=== PATIENT | female | born 2005 | race Caucasian/White ===

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

== ENCOUNTER → 2023-01-08 | Outpatient (CLI) | payer BC, SELFPAY ==
--- NOTE | 2023-01-08 | TONS_PTH ---
PATIENT: GANGA MANDEL [facility] U#:[id number] AGE/SX: ROOM: RE01/08/[address]: Dr. Joaquin Vick MD : 2005 BED: DIS: 01/08/2023 SPEC #: [id number] RECD: 01/09/23 10:10 STATUS: FRANKO REDemetra #: [id number] JANE: 01/08/23 00:[address]: Joaquin Vick DEPT: SURGICAL PATHOLOGY RECD BY: Julio Elliott ENTERED: 01/09/23 10:10 SP TYPE: TONSILS OTHR DR: Dr. Crissy Hopper MD [facility] Tissues: Tonsil, NOS Procedures: Surgery Specimen Level III HEADER OPERATION: Bilateral tonsillectomy PRE-OP DIAGNOSIS: Chronic tonsillitis, hypertrophy of tonsils TISSUE SUBMITTED: Bilateral tonsils, right tonsil pinned MICROSCOPIC DIAGNOSIS Bilateral tonsils, tonsillectomy: Reactive lymphoid hyperplasia, consistent with chronic tonsillitis. Focal actinomyces colonization. SJ:tasia 01/12/2023 MICROSCOPIC DESCRIPTION Slides are reviewed. GROSS DESCRIPTION Received is one container labeled with the patient's name and designated tonsils - pin/tie on right are two tonsils that in aggregate weigh 4.9 gm. The right tonsil has a pin-tie on it and measures 2.5 x 1.5 x 1.0 cm. The left tonsil measures 2.6 x 1.5 x 1.0 cm. Both tonsils are similar in appearance. The external surfaces are pink-duarte, smooth, glistening and somewhat lobulated. Focally they are hemorrhagic, granular and bear cautery artifact. Serial cross sections through the tonsils reveal normal tonsillar architecture. Sections are submitted in two cassettes as follows: 1 - right tonsil, 2 - left tonsil. / AM:tasia 01/09/2023 TC:3 CPT: 44897 x2
== END | disposition home or self-care (01) ==
LOC: LABSPEC 15:39
PROVIDERS: PCP Pediatrics; Referring Provider Otolaryngology; Visit Provider Otolaryngology
DX: J35.01 Chronic tonsillitis (principal)
CPT/HCPCS: 88304